=== PATIENT | female | born 1945 | race Caucasian/White ===

== ENCOUNTER 2017-05-30 23:51 | Inpatient (IN) ==
[2017-05-31 02:18] LABS: BASO% 0.1 % (0.0-0.8); EOS# 0.01 X1000 (0.0-0.7); EOS% 0.1 % (0.0-10.0); HEMATOCRIT 39.4 % (37.0-47.0); IMM GRAN# 0.06 X1000 (0.0-0.04); IMM GRAN% 0.3 % (0.0-0.5); LYMPH# 0.53 X1000 (1.2-3.4); LYMPH% 2.8 % (20.5-51.1); MANUAL DIFF NEEDED? YES; MCH 29.2 PG (27-31); MCV 88.5 FL (81-99); MONO# 0.84 X1000 (0.11-0.59); MONO% 4.4 % (1.7-9.3); MPV 10.3 FL (7.4-10.4); NEUT% 92.3 % (42.2-75.2); PLT 247 X1000 (130-400); RBC 4.45 XMIL (4.2-5.4)
[2017-05-31 02:31] LABS: ALBUMIN 4.1 g/dL (3.5-5.0); POTASSIUM 4.1 mmol/L (3.5-5.1); TOTAL BILIRUBIN 0.5 mg/dL (0.20-1.00); TOTAL PROTEIN 7.1 g/dL (6.3-8.3)
[2017-05-31 02:39] LABS: BANDS 3 % (0-1); LYMPHS 2 % (21-51); MONO 4 % (1-9)
[2017-05-31 02:40] LABS: LARGE PLATELETS OCCASIONAL
[2017-05-31 02:47] LABS: CK INDEX 1.3 (0.0-2.5); CK-MB 3.92 ng/mL (0.0-5.0)
[2017-05-31] MEDS ORDERED: LEVAQUIN 750 MG/D5W 750 MG/150 ML IVPB IV ONE (02:53)
[2017-05-31] MEDS ORDERED: NS 1,000 ML IV PRN (02:53)
[2017-05-31] MEDS ORDERED: PERCOCET-5 PO ONE (02:55)
[2017-05-31] MEDS ORDERED: ZOFRAN IV ONE (02:55)
[2017-05-31 03:10] LABS: BILIRUBIN URINE NEGATIVE (NEGATIVE); BLOOD URINE NEGATIVE (NEGATIVE); CLARITY CLEAR (CLEAR); COLOR YELLOW; GLUCOSE URINE NEGATIVE (NEGATIVE); LEUKOCYTES URINE TRACE (NEGATIVE); NITRITE URINE NEGATIVE (NEGATIVE); PH URINE 6.5; PROTEIN URINE TRACE mg/dL (NEGATIVE); SP GRAVITY URINE 1.015; UROBILINOGEN URINE 1+(1 mg/dL)
[2017-05-31 03:20] LABS: URINE CULTURE PL NEEDED? YES; URINE EPITHELIAL CELLS <10 /HPF (<10); URINE RBC <10 /HPF (<10); URINE SOURCE CATH; URINE WBC <10 /HPF (<10)
[2017-05-31] MEDS ORDERED: TYLENOL PO PRN (03:31)
[2017-05-31] MEDS ORDERED: ZITHROMAX PO ONE ×2 (03:31)
[2017-05-31] MEDS ORDERED: NS 1,000 ML IV ONE (03:31)
[2017-05-31] MEDS ORDERED: ZITHROMAX ONE (04:05)
[2017-05-31] MEDS: ROCEPHIN 1 GM in NS 50 ML IV SCH (05:52)
[2017-05-31 08:38] LABS: BASO% 0.1 % (0.0-0.8); EOS# 0.01 X1000 (0.0-0.7); EOS% 0.1 % (0.0-10.0); HEMATOCRIT 34.6 % (37.0-47.0); IMM GRAN# 0.02 X1000 (0.0-0.04); IMM GRAN% 0.1 % (0.0-0.5); LYMPH# 0.94 X1000 (1.2-3.4); LYMPH% 6.4 % (20.5-51.1); MANUAL DIFF NEEDED? YES; MCH 28.4 PG (27-31); MCHC 31.8 g/dL (33-37); MCV 89.4 FL (81-99); MONO# 1.06 X1000 (0.11-0.59); MONO% 7.3 % (1.7-9.3); MPV 10.5 FL (7.4-10.4); PLT 214 X1000 (130-400); RBC 3.87 XMIL (4.2-5.4)
[2017-05-31 08:40] LABS: CALCIUM 8.4 mg/dL (8.8-10.2); POTASSIUM 3.8 mmol/L (3.5-5.1)
[2017-05-31] MEDS: ZITHROMAX PO SCH (08:56)
[2017-05-31] MEDS ORDERED: ZITHROMAX PO SCH (09:00)
[2017-05-31 10:19] LABS: BANDS 2 % (0-1); LYMPHS 12 % (21-51); MONO 4 % (1-9)
[2017-05-31] MEDS ORDERED: PRAVACHOL PO SCH (21:00)
[2017-05-31] MEDS: ATIVAN PO SCH (21:14)
[2017-05-31] MEDS: PRILOSEC PO SCH (22:18)
[2017-06-01] MEDS: ROCEPHIN 1 GM in NS 50 ML IV SCH (04:18)
[2017-06-01 05:55] VITALS: BP 112/70
[2017-06-01 06:04] LABS: MANUAL DIFF NEEDED? NO
[2017-06-01 06:13] LABS: BASO% 0.2 % (0.0-0.8); EOS# 0.29 X1000 (0.0-0.7); EOS% 3.2 % (0.0-10.0); HEMATOCRIT 36.4 % (37.0-47.0); HEMOGLOBIN 11.4 g/dL (12.0-16.0); IMM GRAN# 0.02 X1000 (0.0-0.04); IMM GRAN% 0.2 % (0.0-0.5); LYMPH# 2.08 X1000 (1.2-3.4); LYMPH% 22.8 % (20.5-51.1); MCH 28.2 PG (27-31); MCHC 31.3 g/dL (33-37); MCV 90.1 FL (81-99); MONO# 1.06 X1000 (0.11-0.59); MONO% 11.6 % (1.7-9.3); MPV 10.4 FL (7.4-10.4); PLT 205 X1000 (130-400); RBC 4.04 XMIL (4.2-5.4)
[2017-06-01] MEDS: PRILOSEC PO SCH (06:15)
[2017-06-01 06:42] LABS: AGAP 6; ALBUMIN 2.8 g/dL (3.5-5.0); ALKALINE PHOSPHATASE 85 U/L (32-104); BUN 16 mg/dL (8-22); CALCIUM 8.1 mg/dL (8.8-10.2); CHLORIDE 109 mmol/L (98-107); COSMO 280; GOT 24 U/L (10-30); GPT 17 U/L (10-36); POTASSIUM 3.8 mmol/L (3.5-5.1); SODIUM 140 mmol/L (136-145); TCO2 25 mmol/L (25-35); TOTAL PROTEIN 5.6 g/dL (6.3-8.3)
[2017-06-01] MEDS ORDERED: PRILOSEC PO SCH (07:00)
[2017-06-01] MEDS: ATIVAN PO SCH (08:26)
[2017-06-01] MEDS: ZITHROMAX PO SCH (08:27)
[2017-06-01] MEDS ORDERED: NORVASC PO SCH (09:00)
[2017-06-01] MEDS ORDERED: CELEXA PO SCH (09:00)
[2017-06-01] MEDS ORDERED: DITROPAN XL PO SCH (09:00)
[2017-06-01] MEDS ORDERED: COZAAR PO SCH (09:00)
== END 2017-06-01 11:35 | disposition home health service (06) ==
LOC: P.ED 23:51 → SUATTDRO 05-31 03:59 → P.MEDSURG 05-31 03:59
PROVIDERS: ADMIT Internal Medicine; ATTEND Internal Medicine

== ENCOUNTER 2019-02-19 02:31 | Inpatient (IN) ==
--- NOTE | 2019-02-13 17:54 | EKG Report ---
Test Performed on : 02/13/2019 5:35:36 PM Test Reason : PAT Blood Pressure : / mmHG Vent. Rate : 072 BPM Atrial Rate : 072 BPM P-R Int : 214 ms QRS Dur : 096 ms QT Int : 410 ms P-R-T Axes : 045 -59 036 degrees QTc Int : 448 ms Sinus rhythm. with 1st degree AV block. Left axis deviation Moderate voltage criteria for LVH, may be normal variant Abnormal ECG When compared with ECG of 31-MAY-2017 00:16, No significant change was found Confirmed by Jeff DUMONT, Guzman Meyer ([id number]) on 02/14/2019 6:38:47 PM
[2019-02-13 18:06] LABS: URINE SOURCE CLEAN CATCH
[2019-02-13 18:09] LABS: BILIRUBIN URINE NEGATIVE (NEGATIVE); BLOOD URINE NEGATIVE (NEGATIVE); COLOR YELLOW; GLUCOSE URINE NEGATIVE (NEGATIVE); KETONE URINE NEGATIVE (NEGATIVE); LEUKOCYTES URINE SMALL (NEGATIVE); NITRITE URINE POSITIVE (NEGATIVE); PH URINE 5.5; PROTEIN URINE TRACE mg/dL (NEGATIVE); SP GRAVITY URINE 1.024; TURBIDITY URINE CLEAR (CLEAR); UROBILINOGEN URINE NORMAL (NORMAL)
[2019-02-13 18:11] LABS: UR EPITHELIAL CELLS <10 /HPF (<10); URINE BACTERIA 1+ /HPF; URINE RBC <10 /HPF (<10)
[2019-02-13 18:16] LABS: BASO# 0.04 X1000 (0.0-0.2); BASO% 0.4 % (0.0-0.8); EOS% 4.2 % (0.0-10.0); HEMOGLOBIN 13.8 g/dL (12.0-16.0); IMM GRAN# 0.03 X1000 (0.0-0.04); IMM GRAN% 0.3 % (0.0-0.5); LYMPH# 2.28 X1000 (1.2-3.4); MCH 28.9 PG (27-31); MCHC 32.9 g/dL (33-37); MCV 87.9 FL (81-99); MONO# 0.83 X1000 (0.11-0.59); MONO% 8.7 % (1.7-9.3); MPV 10.4 FL (7.4-10.4); NEUT# 5.93 X1000 (1.4-6.5); NEUT% 62.4 % (42.2-75.2); PLT 299 X1000 (130-400); RBC 4.78 XMIL (4.2-5.4); RDW 14.7 % (11.5-14.5); WBC 9.51 X1000 (4.8-10.8)
[2019-02-13 18:48] LABS: INR 0.91
[2019-02-13 18:49] LABS: PTT 26.4 Seconds (22.3-41.8)
[2019-02-13 18:51] LABS: AGAP 11; BUN 26 mg/dL (8-22); CALCIUM 9.2 mg/dL (8.8-10.2); CHLORIDE 104 mmol/L (98-107); COSMO 290; CREATININE 0.9 mg/dL (0.5-0.9); ESTIMATED GFR > 60; GLUCOSE 99 mg/dL (70-104); POTASSIUM 3.6 mmol/L (3.5-5.1); SODIUM 143 mmol/L (136-145); TCO2 28 mmol/L (25-35)
[2019-02-19] MEDS ORDERED: COLACE ONE (07:32)
[2019-02-19] MEDS ORDERED: KEFZOL 1 GM/D5W 2 GM/100 ML IVPB ONE (07:32)
[2019-02-19] MEDS ORDERED: PEPCID ONE (07:32)
[2019-02-19] MEDS ORDERED: LR 1,000 ML ONE (07:32)
[2019-02-19] MEDS ORDERED: LYRICA ONE (07:32)
[2019-02-19] MEDS ORDERED: REGLAN ONE (07:32)
[2019-02-19] MEDS ORDERED: CELEBREX ONE (07:32)
[2019-02-19] MEDS ORDERED: DIPRIVAN 1% ONE (07:39)
[2019-02-19] MEDS ORDERED: TORADOL ONE (08:14)
[2019-02-19] MEDS ORDERED: VANCOMYCIN ONE (08:14)
[2019-02-19] MEDS ORDERED: MARCAINE 0.25% PF/EPI 1:200,000 ONE (08:14)
[2019-02-19] MEDS ORDERED: DURAMORPH ONE (08:14)
[2019-02-19] MEDS ORDERED: EXPAREL 1.3% ONE (08:15)
[2019-02-19] MEDS ORDERED: SODIUM CHLORIDE 0.9% ONE (08:15)
[2019-02-19] MEDS ORDERED: NEOSPORIN G.U. IRRIGANT ONE (08:15)
[2019-02-19] MEDS ORDERED: DECADRON ONE (08:58)
[2019-02-19] MEDS ORDERED: ZOFRAN ONE (08:58)
[2019-02-19] MEDS ORDERED: OFIRMEV 1000 MG/ISOTONIC SOLN 1,000 MG/100 ML BOTTLE ONE (08:58)
[2019-02-19] MEDS ORDERED: XYLOCAINE-MPF 2% ONE (08:58)
[2019-02-19] MEDS: CYKLOKAPRON 1,000 MG/NS 2,000 MG/200 ML IVPB ONE ×2 (09:00→10:00)
[2019-02-19] MEDS ORDERED: FENTANYL ONE (09:20)
--- NOTE | 2019-02-19 10:22 | OPERATIVE NOTE ---
PROCEDURE DATE: 02/19/2019 PREOPERATIVE DIAGNOSIS: Degenerative joint disease, left knee. POSTOPERATIVE DIAGNOSIS: Degenerative joint disease, left knee. PROCEDURE PERFORMED: Left total knee replacement. SURGEON: Jannette Yanez MD. FLAME HARDENING MACHINE SETTER: JIGNESH Hutchinson Mr. Costello was necessary for proper retraction and manipulation of the knee during the case. ANESTHESIA: General. COMPLICATION: None. PROCEDURE IN DETAIL: A 73-year-old female presents for left total knee replacement. Risks, benefits, and no guarantees were discussed and she is willing to proceed. She was taken to the operating room and satisfactory anesthesia obtained. The left leg was prepped and draped in usual sterile fashion. A time-out was taken to confirm operative site, procedure, and patient. The leg was wrapped with an Esmarch and tourniquet inflated to 350 mmHg. A midline incision was made over the front of the knee, followed by a quad tendon sparing arthrotomy. The patella was everted and resurfaced with freehand technique and subluxed laterally. The knee was flexed and an intramedullary hole made in the distal femur and the distal femoral cutting block secured in 5 degrees of valgus. Distal femur was sized to a size 4 [employer] femoral implant. The finishing block was secured and the anterior, posterior, and chamfer cuts sequentially made. Any osteophytes were debrided about the femur. The knee was flexed and a PCL retractor placed behind the tibia to protect the PCL and neurovascular bundle. The tibial cutting block was secured with extramedullary alignment and tibial resection made. Flexion and extension gaps were equal at roughly 6 mm. The tibia was sized to a size 4 tibial tray. A trial reduction was performed with a size 4 tibial tray, a 6-mm rotating platform poly and a size 4 femoral implant. Good range of motion and stability were noted. The femur was measured to a size 4 narrow implant. Drill holes were placed for the femoral implant. The patella was sized to a 32 medialized dome patella and the drill hole was prepared for this. The trial implants were removed and the bony surfaces thoroughly irrigated with pulsatile lavage. Cement with a gram of vancomycin was used to cement a size 4 rotating platform tibial base plate, size 4 narrow left cruciate retaining femoral component and a 32 medialized dome patella. Excess cement was removed with a [place] elevator. While the cement cured, the joint capsule was injected with Exparel for pain management and Hemovac drain placed. The arthrotomy was copiously irrigated and a size 4 6-mm thick cruciate- retaining polyethylene bearing inserted into the tibial tray and the knee reduced. Final range of motion was 0 to 135 degrees with midline patellar tracking. It was then closed over the drain with #1 Vicryl in the arthrotomy, 2-0 Vicryl in the subcutaneous and skin ciara on the skin edges. Sterile dressings completed the closure and the patient was recovered from anesthesia and transferred to the recovery room in stable condition. No intraoperative complications were noted. Instrument count and sponge count were correct at the time of closure. cc: Rajesh Yanez MD
[2019-02-19 10:36] LABS: URINE SOURCE CATH
[2019-02-19 10:40] LABS: BILIRUBIN URINE NEGATIVE (NEGATIVE); BLOOD URINE NEGATIVE (NEGATIVE); COLOR STRAW; GLUCOSE URINE NEGATIVE (NEGATIVE); KETONE URINE NEGATIVE (NEGATIVE); LEUKOCYTES URINE NEGATIVE (NEGATIVE); NITRITE URINE NEGATIVE (NEGATIVE); PH URINE 6.5; PROTEIN URINE NEGATIVE (NEGATIVE); SP GRAVITY URINE 1.008; TURBIDITY URINE CLEAR (CLEAR); UR EPITHELIAL CELLS <10 /HPF (<10); URINE BACTERIA NEGATIVE /HPF; URINE RBC <10 /HPF (<10); URINE WBC <10 /HPF (<10); UROBILINOGEN URINE NORMAL (NORMAL)
[2019-02-19] MEDS ORDERED: OXY IR PO PRN ×2 (11:00)
[2019-02-19] MEDS ORDERED: ZOFRAN IV PRN (11:00)
[2019-02-19] MEDS ORDERED: ZOFRAN ODT PO PRN (11:00)
[2019-02-19] MEDS ORDERED: NS 1,000 ML IV SCH (11:00)
[2019-02-19] MEDS ORDERED: MORPHINE IV PRN ×3 (11:00)
[2019-02-19] MEDS ORDERED: NS 1,000 ML ONE (11:05)
--- NOTE | 2019-02-19 11:29 | Diag Imaging Result Doc PS360 ---
KNEE 1-2 VIEWS-LEFT - 02/19/2019 INDICATION: post op TECHNIQUE: Two views COMPARISON: None FINDINGS: There has been placement of a left total knee arthroplasty. Alignment is anatomic. No hardware fracture or loosening. IMPRESSION: No complication. Electronically signed by Otilio Huynh 02/19/2019 11:26 AM
--- NOTE | 2019-02-19 12:56 | ORTHOPAEDICS PROGRESS NOTE ---
DATE: 02/19/2019 SUBJECTIVE DATA: Ms. Jett is seen on postop day 0 of her left total knee arthroplasty. She reports there is zero pain at this time. She reports that she has not been up with Physical Therapy at this time. OBJECTIVE DATA: The patient is sitting in the bed comfortably, eating her dinner. Bandages are clean and dry. There are good pedal pulses. There is good capillary refill in the toes. The patient can flex her quadriceps muscles without difficulty. Vital signs are stable. Urine is negative. ASSESSMENT: Degenerative joint disease, left knee, with total knee arthroplasty. PLAN: We plan on keeping Ms. Jett in the hospital over the next couple of days, and discharging her to rehab on Monday if a bed is available. Will check back on her in the morning. Dictated by JIGNESH Hutchinson for Rajesh Yanez MD cc: JIGNESH Hutchinson MD
[2019-02-19] MEDS: TYLENOL PO SCH ×2 (15:55→21:54)
[2019-02-19] MEDS: ULTRAM PO SCH ×2 (15:55→21:54)
[2019-02-19] MEDS: KEFZOL 2 GM/D5W 2 GM/50 ML IVPB IV SCH ×2 (15:57→16:05)
[2019-02-19] MEDS: COLACE PO SCH (21:53)
[2019-02-19] MEDS: PERIDEX MT SCH (21:53)
[2019-02-19] MEDS: CELEBREX PO SCH (21:54)
[2019-02-20] MEDS: KEFZOL 2 GM/D5W 2 GM/50 ML IVPB IV SCH (02:52)
[2019-02-20] MEDS: TYLENOL PO SCH ×3 (04:37→21:51)
[2019-02-20] MEDS: ULTRAM PO SCH ×3 (04:37→21:50)
[2019-02-20 07:03] LABS: AGAP 9; BUN 16 mg/dL (8-22); CALCIUM 8.3 mg/dL (8.8-10.2); CHLORIDE 107 mmol/L (98-107); COSMO 283; CREATININE 0.8 mg/dL (0.5-0.9); ESTIMATED GFR > 60; GLUCOSE 104 mg/dL (70-104); HEMATOCRIT 32.7 % (37.0-47.0); HEMOGLOBIN 10.6 g/dL (12.0-16.0); POTASSIUM 3.5 mmol/L (3.5-5.1); SODIUM 141 mmol/L (136-145); TCO2 25 mmol/L (25-35)
--- NOTE | 2019-02-20 07:52 | ORTHOPAEDICS PROGRESS NOTE ---
DATE: 02/20/2019 Ms. Jett is seen status post total knee replacement. She is afebrile with stable vital signs. Hematocrit is 32.7. Her bandage is clean and dry. She appears to be motor and sensory intact. There are no signs of DVT. She is inpatient status due to multiple medical issues. We will plan on discontinuing her lines and mobilizing her today. computer networker will see her regarding inpatient rehab placement later this week. cc: Rajesh Yanez MD
[2019-02-20] MEDS: COLACE PO SCH ×2 (11:25→21:50)
[2019-02-20] MEDS: PEPCID PO SCH (11:25)
[2019-02-20] MEDS: ASPIRIN PO SCH (11:25)
[2019-02-20] MEDS: CELEBREX PO SCH ×2 (11:25→21:51)
[2019-02-20] MEDS: PERIDEX MT SCH ×2 (11:27→21:50)
[2019-02-21] MEDS: TYLENOL PO SCH ×5 (04:59→23:03)
[2019-02-21] MEDS: ULTRAM PO SCH ×5 (05:00→23:03)
[2019-02-21 05:55] LABS: HEMATOCRIT 33.9 % (37.0-47.0); HEMOGLOBIN 10.9 g/dL (12.0-16.0)
[2019-02-21] MEDS: PERIDEX MT SCH ×2 (10:58→23:03)
[2019-02-21] MEDS: CELEBREX PO SCH ×2 (10:59→23:03)
[2019-02-21] MEDS: COLACE PO SCH ×2 (10:59→23:03)
[2019-02-21] MEDS: PEPCID PO SCH (10:59)
[2019-02-21] MEDS: ASPIRIN PO SCH (10:59)
--- NOTE | 2019-02-21 13:33 | Diag Imaging Result Doc PS360 ---
CHEST-2 VIEWS - 02/21/2019 INDICATION: rehab placement COMPARISON: None FINDINGS: The lungs are normally expanded and clear. Heart size and mediastinal contours are normal. No pneumothorax or pleural effusion. There is a small hiatal hernia behind the heart. IMPRESSION: Negative exam. Electronically signed by Otilio Huynh 02/21/2019 1:31 PM
--- NOTE | 2019-02-21 20:09 | ORTHOPAEDICS PROGRESS NOTE ---
DATE: 02/21/2019 SUBJECTIVE DATA: Ms. Jett is seen status post left total knee replacement. She reports she is doing well at this time. She states her pain is a 4/10 at this time. She reports she has been on physical therapy and walking without much difficulty. OBJECTIVE DATA: Her bandages are clean and dry. There is no drainage. The patient is motor and sensory intact. There are no signs of DVT. There is negative Chloe sign. There are good pedal pulses. There is good sensation. ASSESSMENT: Degenerative joint disease left knee with total knee arthroplasty. PLAN: We will plan on discharging her tomorrow into rehab. We will get her ciara out 10 to 14 days. We will check back on her in the morning. Dictated by JIGNESH Hutchinson for Rajesh Yanez MD cc: JIGNESH Hutchinson MD
[2019-02-22] MEDS: TYLENOL PO SCH ×2 (05:15→09:31)
[2019-02-22] MEDS: ULTRAM PO SCH ×2 (05:15→12:11)
[2019-02-22 06:51] LABS: HEMATOCRIT 31.2 % (37.0-47.0)
[2019-02-22] MEDS: PERIDEX MT SCH (08:44)
--- NOTE | 2019-02-22 09:03 | DISCHARGE SUMMARY ---
ADMISSION DATE: 02/19/2019 DISCHARGE DATE: 02/22/2019 ADMITTING DIAGNOSIS: Degenerative joint disease left knee. ADDITIONAL DIAGNOSES: 1. History of sleep apnea. 2. Stomach ulcers. 3. Scoliosis. 4. Hypertension. 5. Depression, and anxiety. DISCHARGE DIAGNOSES: 1. Degenerative joint disease left knee. 2. History of sleep apnea. 3. Stomach ulcers. 4. Scoliosis. 5. Hypertension. 6. Depression, and anxiety. ADMITTING HISTORY AND HOSPITAL COURSE: This 73-year-old female was admitted to the hospital for left knee replacement. She lives alone, has inability care for herself immediately at home. She was admitted as an inpatient and underwent a left knee replacement. She has had a stable hospital course, has remained afebrile with stable vital signs. Her current status is her knee is clean and dry. There is no signs of infection, significant swelling or DVT. She is transferred to inpatient rehab for continued convalescent care and strength training to regain activities of daily living. Once she is stable and independent, she can be transferred home from the rehab center. She is to follow up with me upon discharge. DISCHARGE MEDICATIONS: She is discharged to the rehab center on [address] as needed for pain every 4 hours 1 tablet, and 325 mg aspirin daily for DVT prophylaxis. Her regular home medicines consisting of amlodipine 5 mg daily, citalopram 40 mg daily somantadine 40 mg daily, lorazepam 0.5 mg every 12 hours as needed for anxiety, losartan 100 mg daily, omeprazole 40 mg daily, oxybutynin 50 mg extended release and pravastatin 20 mg daily. DISCHARGE INSTRUCTIONS: She is to return in the interim for any worsening signs or symptoms. cc: Rajesh Yanez MD
[2019-02-22] MEDS: ASPIRIN PO SCH (09:31)
[2019-02-22] MEDS: COLACE PO SCH (09:31)
[2019-02-22] MEDS: PEPCID PO SCH (09:31)
[2019-02-22] MEDS: CELEBREX PO SCH (09:31)
[2019-02-22 12:10] VITALS: BP 138/75
== END 2019-02-22 14:05 | DRG 470 ==
LOC: SURHOLD 02:31 → 4N 09:03
PROVIDERS: ADMIT Orthopaedic Surgery Adult Reconstructive Orthopaedic Surgery; ATTEND Orthopaedic Surgery Adult Reconstructive Orthopaedic Surgery
CPT/HCPCS: 71020; 71046; 73560; 80048; 81001; 85014; 85018; 85025; 85610; 85730; 86850; 86900; 86901; 88305; 88311; 93005; 93010; 94640; 94761; 97110; 97116; 97162; 97530; A9270; C9290; J0131; J0690; J1100; J1885; J2274; J2275; J2405; J3010; J3370; J7030; J7120; Q9974; S0020; S0181; S1119; S119